=== PATIENT | male | born 1970 | race African-American/Black ===

== ENCOUNTER 2017-03-06 20:15 | Inpatient (IN) ==
[2017-03-06] MEDS ORDERED: AZITHROMYCIN INJ 500 MG in SODIUM CHLORIDE 0.9% 250 ML IV STA (20:41)
[2017-03-06] MEDS ORDERED: ALBUTEROL/IPRATROPIUM 3 ML NEB RESP TX STA (20:41)
[2017-03-06] MEDS ORDERED: methylPREDNISolone SOD SUC 125 MG/2 ML VIAL IV STA (20:41)
[2017-03-06] MEDS ORDERED: KETOROLAC 30 MG/1 ML VIAL IV STA (20:41)
[2017-03-06] MEDS ORDERED: cefTRIAXone 1,000 MG in SODIUM CHLORIDE 0.9% 100 ML IV STA (20:41)
[2017-03-06] MEDS ORDERED: ONDANSETRON 4 MG/2 ML VIAL IV STA (20:41)
--- NOTE | 2017-03-06 20:45 | Emergency Department Note ---
Arrival - Arrival Chief Complaint: Upper Respiratory ED Nursing Triage Note: Pt arrives via ems from home with complaints of productive cough and fever that started yesterday. Pt complains of pain with cough and deep breathing. Denies taking any otc medications or attempting to see family doctor. Mode of Arrival: Stretcher Limitations: No Limitations Source: Patient Time Seen by Provider: 03/06/17 20:41 - History of Present Illness HPI Narrative: This 46-year-old black male presents with 1 month of progressive weight loss, increasing dyspnea on exertion, productive cough of yellow-green sputum, and in the last 2 days severe right-sided pleuritic chest pain. The patient has had low-grade fever but no chills or hemoptysis. Likewise, he reports a 25 pound weight loss over the last month without any attempts at losing weight. Currently he is stable at rest. Onset (ago): month(s) (Patient presents 1 month post onset of symptoms) Allergies/Adverse Reactions: Allergies Allergy/AdvReac Type Severity Reaction Status Date / Time No Known Allergies Allergy Verified 01/21/17 12:04 Home Medications: Home Medications Medication Instructions Recorded Confirmed Type levETIRAcetam TAB [Keppra Tab] 500 mg PO BID #60 tablet 01/21/17 03/06/17 Rx Review of System - Review of System 12 point system: reviewed and no additional remarkable complaints except as stated - Review of System Constitutional: Present: as per HPI Respiratory: Present: as per HPI Medical,Surgical,& Family Hx - Medical History Cardio: History of: Hypertension No history of: Aneurysm, Cardiac Dysrhythmia, Cerebrovascular Disease, Congenital Heart Disease, CHF, CAD, [place], Pacemaker, PVD, Valvular Heart Disease, Cardiovascular Problems Neurology: History of: Seizures No history of: Brain Aneurysm, Cerebral Hemorrhage, Cerebrovascular Accident , Cerebral Palsy, Dementia, Migraine, Multiple Sclerosis, Parkinson's Disease, Peripheral Neuropathy, TIA, Vertigo, Neurologocal Cancer Endocrine: No history of: Dyslipidemia Hematology: No history of: Blood Transfusion Reaction Other: History of: Miscellaneous Medical Problems (Seizures) - Surgical History Cardiac Surgeries: Patient Denies: Femoral-Popliteal Bypass Graft, Cardiac Catheterization, Cardiac Surgery, Carotid Endarterectomy, Internal Defibrillator, Vascular Access Devices Neurologic Surgeries: Patient denies: Brain Aneurysm, Cerebral Hemorrhage, Neurologic Surgery HEENT Surgeries: Patient denies: Carotid Endarterectomy Abdominal Surgeries: Patient denies: Abdominal Surgery, Splenectomy - Family History Family History: Reports;: Family Cancer (father), Family Diabetes (mother), Family Heart Disease (mother), Family Hypertension (mother), Family Stroke ( grandmother) Denies;: Family Anesthesia Reaction, Family Psychiatric Problems - Social History Smoking Status: Smoker, status unknown Frequency of Alcohol Use: Frequently Type of Drug Use: None Exam Physical Examination: GENERAL: Thin frail chronically ill-appearing black male in no acute distress. HEENT: Normocephalic. No trauma. Moist mucous membranes. EOMI. PERRLA. ENT NML NECK: Supple. No adenopathy. CARDIAC: Regular. No murmurs. Heart rate 79 CHEST: Clear to auscultation. No respiratory distress. O2 sat 100% ABDOMEN: Soft. Nontender. Active bowel sounds. EXTREMITIES: No trauma. Normal ROM. No pedal edema. SKIN: No diaphoresis. No rash. NEURO: Alert. Neuro intact no focal deficits. Vital Signs: Vital Signs Temperature 99.9 F H 03/06/17 20:15 Pulse Rate 77 03/06/17 21:01 Respiratory Rate 20 03/06/17 21:01 Blood Pressure 128/100 03/06/17 20:15 O2 Sat by Pulse Oximetry 100 03/06/17 21:01 Course - Reevaluation(s) Reevaluation #1: Patient advised of need of hospitalization with chest tube. - Consultations Consultation #1: Dr. Martins consulted who placed chest tube without difficulty. Results - Labs CBC & BMP: 03/06/17 20:54 03/06/17 20:54 Labs: I have reviewed the laboratory and noted the mild anemia, leukopenia, hypocalcemia - Impressions EKG: Sinus rhythm with normal NJ interval and evidence of right ventricular conduction delay. Nonspecific ST changes. No acute injury pattern noted. - Diagnostic Findings Procedure: Chest x-ray: image reviewed by me, report reviewed by me (Crowding of the right hilum with evidence of a 30% pneumothorax as well as layering of pleural fluid on the right as well) Disposition Clinical Impression: Pneumothorax right lung, Weight loss Case discussed with: patient Disposition: Still a Patient Condition: Guarded Time of Disposition: 22:19
--- NOTE | 2017-03-06 20:58 | EKG Report ---
Stationary ECG Study [facility] ER Test Date: 03/06/2017 8:57:35 PM Pat Name: HELDER CHOWDHURY Department: Room: Gender: M Parts Classifier: : [id number] Requested by: Vishnu Arshad Order Number: [id number] Reading MD: SURENDRA GARZON Intervals [place] Rate: 78 P: 85 IN: 159 QRS: 73 QRSD: 93 T: 83 QT: 393 QTc: 427 Interpretive Statements SINUS RHYTHM EARLY REPOLARIZATION Electronically Signed On 03-06-17 21:49:19 CDT by SURENDRA GARZON [email or web address]
[2017-03-06 21:21] LABS: Basophils % 0.9 % (0.0-0.8); Eosinophils % 0.3 % (0.00-10.9); Hematocrit 36.8 VOL% (42.0-52.0); Hemoglobin 13.6 GM/DL (14.0-18.0); Lymphocytes # 1.7 10*3/uL (1.4-4.0); Lymphocytes % 52.2 % (21.2-54.2); Mean Corpuscular Hemoglobin 37 PG (27-34); Mean Corpuscular Volume 100.3 FL (87-102); Monocytes # 0.3 10*3/uL (0.11-0.8); Monocytes % 9.9 % (1.7-12.7); Neutrophils # 1.2 10*3/uL (1.4-7.4); Neutrophils % 36.7 % (38.7-73.9); Platelet Count 161 T/CUMM (130-400); Red Blood Count 3.67 MC/CUMM (3.8-5.5); Red Cell Distribution Width 12.4 % (9.3-17.3); White Blood Count 3.2 T/CUMM (4-12)
[2017-03-06 21:34] LABS: INR 1.3; PT Patient Result 13.6 SECS; Partial Thromboplastin Time 40.4 SECS (0-40)
[2017-03-06 21:40] LABS: Alanine Aminotransferase 50 U/L (16-61); Albumin 3.1 G/DL (3.4-5.0); Alkaline Phosphatase 92 U/L (45-117); Aspartate Amino Transferase 75 U/L (0-37); Blood Urea Nitrogen 8 MG/DL (7-18); Glucose 87 MG/DL (74-106); Osmolality,Calculated 271.7 MOS/KG (273-304); Sodium 138 MMOL/L (136-145); Total Protein 6.2 G/DL (6.4-8.3); Troponin I Only < 0.015 NG/ML (0.00-0.045)
--- NOTE | 2017-03-06 22:22 | General Surg History&Physical ---
Assessment and Plan (1) Spontaneous pneumothorax Status: Acute Assessment and plan: This patient had a chest tube placed in the ER for spontaneous pneumothorax. He also has a pleural effusion. We will get a CT scan of the chest with IV contrast to further evaluate. He will be admitted to the hospital on IV antibiotics for presumed pneumonia until CT scan is done and serial chest x- rays will be ordered. Current Visit: Yes History of Present Illness Chief complaint: Spontaneous pneumothorax with pleural effusion History of present illness: Mr. Fonseca is a 46 year old male who presented to the ER right chest pain with cough that is productive. He also has unintentional weight loss. He was found to have a spontaneous pneumothorax with pleural effusion on his chest x-ray and a chest tube was placed in the ER. X-ray confirmed adequate placement of 2 with lung reexpansion. There is no significant fluid output from the chest tube placement. CT scan of the chest has been ordered in the ER. Home Medications Medication Instructions Recorded Confirmed Type levETIRAcetam TAB [Keppra Tab] 500 mg PO BID #60 tablet 01/21/17 03/06/17 Rx Allergies Allergy/AdvReac Type Severity Reaction Status Date / Time No Known Allergies Allergy Verified 01/21/17 12:04 Medical,Surgical,& Family Hx - Medical History Cardio: History of: Hypertension No history of: Aneurysm, Cardiac Dysrhythmia, Cerebrovascular Disease, Congenital Heart Disease, CHF, CAD, [place], Pacemaker, PVD, Valvular Heart Disease, Cardiovascular Problems Neurology: History of: Seizures No history of: Brain Aneurysm, Cerebral Hemorrhage, Cerebrovascular Accident , Cerebral Palsy, Dementia, Migraine, Multiple Sclerosis, Parkinson's Disease, Peripheral Neuropathy, TIA, Vertigo, Neurologocal Cancer Endocrine: No history of: Dyslipidemia Hematology: No history of: Blood Transfusion Reaction Other: History of: Miscellaneous Medical Problems (Seizures) - Surgical History Cardiac Surgeries: Patient Denies: Femoral-Popliteal Bypass Graft, Cardiac Catheterization, Cardiac Surgery, Carotid Endarterectomy, Internal Defibrillator, Vascular Access Devices Neurologic Surgeries: Patient denies: Brain Aneurysm, Cerebral Hemorrhage, Neurologic Surgery HEENT Surgeries: Patient denies: Carotid Endarterectomy Abdominal Surgeries: Patient denies: Abdominal Surgery, Splenectomy - Family History Family History: Reports;: Family Cancer (father), Family Diabetes (mother), Family Heart Disease (mother), Family Hypertension (mother), Family Stroke ( grandmother) Denies;: Family Anesthesia Reaction, Family Psychiatric Problems - Social History Smoking Status: Smoker, status unknown Frequency of Alcohol Use: Frequently Type of Drug Use: None Exam - Constitutional Vitals: Period Temp Pulse Resp BP Sys/Thompson Pulse Ox Last 24 Hr 99.9 F-99.9 F 73-79 20-20 128-128/100-100 99-100 General appearance: normal weight, no acute distress - Head Head exam: Present: normal inspection, normocephalic - Eye Eye exam: Present: EOMI Pupils: Present: SARA - ENT Mouth exam: Present: normal external inspection, normal voice - Neck Neck exam: Present: normal inspection, trachea midline - Respiratory Respiratory exam: Present: clear to auscultation bilaterally. Absent: accessory muscle use, chest wall tenderness - Cardiovascular Cardiovascular exam: Present: RRR. Absent: systolic murmur, tachycardia - GI/Abdominal GI/Abdominal exam: Present: normal bowel sounds, soft. Absent: tenderness, rebound - Extremities Exam Extremities exam: Present: normal inspection, normal capillary refill - Back Exam Back exam: Present: normal inspection - Neurological Exam Neurological exam: Present: alert, oriented X3 Speech: Present: normal - Skin Skin exam: Present: normal color, warm - Constitutional Constitutional: Present: as per HPI - EENT Nose, mouth and throat: Present: as per HPI - Cardiovascular Cardiovascular: Present: as per HPI - Respiratory Respiratory: Present: as per HPI - Gastrointestinal Gastrointestinal: Present: as per HPI - Genitourinary Genitourinary: Present: as per HPI - Musculoskeletal Musculoskeletal: Present: as per HPI - Neurological Neurological: Present: as per HPI - Endocrine Endocrine: Present: as per HPI Hematologic/Lymphatic: Present: as per HPI Results - Labs CBC & BMP: 03/06/17 20:54 03/06/17 20:54 - Diagnostic Findings Procedure: X-ray: image reviewed by me (Spontaneous pneumothorax with pleural effusion)
--- NOTE | 2017-03-06 22:24 | Operative Note ---
Date of procedure: 03/06/17 Pre-op diagnosis: Spontaneous pneumothorax right chest Post-op diagnosis: same Procedure: Preoperative diagnosis Right chest spontaneous pneumothorax with pleural effusion Postoperative diagnosis Same Procedures performed Right chest tube placement 24 Maldivian Findings A rodríguez of air was obtained and entry into the chest. No significant fluid output or blood or pus. Complications None apparent Specimen None Anesthesia Local 10 cc of lidocaine Blood loss Minimal Indications Spontaneous right chest pneumothorax with pleural effusion Description of procedure The patient was taken to the ER bay and placed in the supine position. His right arm was placed above his head. The right chest was prepped chlorhexidine and draped sterilely. Informed consent was obtained prior to the procedure. Local anesthetic was administered in the anterior axillary line at the level of the nipple. Incision was made with an 11 blade scalpel and blunt dissection was used to dissected through the fifth intercostal space at the level the nipple to enter into the chest. There is a rodríguez of air present. 24 Maldivian chest tube was placed. There is no fluid output. Patient tolerated procedure well and the chest tube was sewn in with 0 silk sutures. Sterile occlusive dressings were placed. Postoperative chest x-ray was ordered. Postoperative plan Chest CT and admit for observation Implants: 24 sinhala chest tube Anesthesia: local Surgeon / Physician: Bernabe Martins Estimated blood loss: minimal Specimens: none sent Condition: stable Disposition: no change Results - Labs CBC & BMP: 03/06/17 20:54 03/06/17 20:54 Discharge Plan - Discharge Medications No Action levETIRAcetam TAB [Keppra Tab] 500 mg PO BID #60 tablet - Follow Up or Referral - Forms/Instructions
[2017-03-06] MEDS ORDERED: AZITHROMYCIN 500 MG VIAL IV ONE (22:48)
[2017-03-06] MEDS ORDERED: methylPREDNISolone SOD SUC 125 MG/2 ML VIAL ONE (22:49)
[2017-03-06] MEDS ORDERED: KETOROLAC 30 MG/1 ML VIAL ONE (22:49)
[2017-03-06] MEDS ORDERED: ONDANSETRON 4 MG/2 ML VIAL ONE (22:49)
[2017-03-06] MEDS ORDERED: cefTRIAXone 1,000 MG VIAL ONE (22:49)
[2017-03-06 23:01] LABS: Apearance,Urine CLEAR (Clear); Bilirubin,Urine Negative (Negative); Blood, Urine Negative (Negative); Glucose,Urine (UA) Negative (Negative); Ketones,Urine Negative (Negative); Nitrite,Urine Negative (Negative); Protein,Urine Negative; Urine Color Straw (Yellow); Urine Specific Gravity 1.003 (1.001-1.035); Urine Urobilinogen < 2.0 EU/DL (0.2-1.0); WBC,Urine 1 /HPF (0-6)
[2017-03-06 23:10] LABS: Barbiturates Screen,Urine Negative (Negative); Benzodiazepines Screen,Urine Negative (Negative); Cannabinoid Screen,Urine Negative (Negative); Opiate Screen,Urine Negative (Negative); Phencyclidine Screen,Urine Negative (Negative)
[2017-03-06 23:53] LABS: Band Neutrophils 1 % (0-10); Lymphocytes 49 % (20-55); Metamyelocytes 1 %; Segmented Neutrophils 43 % (50-85)
[2017-03-06 23:54] LABS: Platelet Estimate Adequate; Total Cells Counted 100
[2017-03-06] MEDS ORDERED: ONDANSETRON 4 MG/2 ML VIAL IV PRN (23:56)
[2017-03-06] MEDS ORDERED: HYDROmorphone 2 MG/1 ML VIAL IV PRN (23:56)
[2017-03-06] MEDS ORDERED: PROMETHAZINE 25 MG/1 ML VIAL IM PRN (23:56)
[2017-03-06] MEDS ORDERED: ACETAMINOPHEN 325 MG TABLET PO PRN (23:56)
[2017-03-07] MEDS: LACTATED RINGERS 1,000 ML IV SCH ×3 (00:21→19:49)
[2017-03-07] MEDS: KETOROLAC 30 MG/1 ML VIAL IV SCH ×4 (00:24→17:20)
[2017-03-07] MEDS: LEVOFLOXACIN INJ 750 MG in PREMIX 1 EACH IV SCH (02:19)
[2017-03-07 04:19] LABS: Basophils % 0.3 % (0.0-0.8); Hemoglobin 13.6 GM/DL (14.0-18.0); Lymphocytes # 0.9 10*3/uL (1.4-4.0); Lymphocytes % 26.9 % (21.2-54.2); Mean Corpuscular HGB Conc 37.5 GM/DL (32-36); Mean Corpuscular Hemoglobin 38 PG (27-34); Mean Platelet Volume 10.6 FL (9.6-12.0); Monocytes # 0.1 10*3/uL (0.11-0.8); Monocytes % 2.1 % (1.7-12.7); Neutrophils # 2.4 10*3/uL (1.4-7.4); Neutrophils % 70.7 % (38.7-73.9); Platelet Count 158 T/CUMM (130-400); Red Blood Count 3.63 MC/CUMM (3.8-5.5); Red Cell Distribution Width 12.5 % (9.3-17.3); White Blood Count 3.4 T/CUMM (4-12)
[2017-03-07 04:28] LABS: Hematocrit 36.9 VOL% (42.0-52.0)
[2017-03-07 05:31] LABS: Calcium 8.1 MG/DL (8.5-10.1); Osmolality,Calculated 270.1 MOS/KG (273-304); Potassium 4.2 MMOL/L (3.5-5.1)
--- NOTE | 2017-03-07 08:13 | CT Report ---
CT of the chest with intravenous contrast. Indication: Spontaneous pneumothorax. Comparison: May 22, 2008. Axial images were obtained with sagittal and coronal 2-D reconstructions. 100 cc Omni 350. The thyroid gland is normal in size. There is no supraclavicular or axillary lymphadenopathy. The thoracic aorta is of normal caliber. There is no hilar or mediastinal lymphadenopathy. The heart size is normal. There is coronary artery calcification. Lung tay demonstrate paraseptal and centrilobular emphysematous change, with an upper lobe predominance. There is a chest tube in place on the right, with its distal tip at the lung apex. There is a small amount of air tracking along the course of the chest tube, all along the lateral aspect of the pleural space. There is a small amount of pneumothorax anteriorly at the lung bases, and within the major fissure. There is atelectasis of the right lower lobe and a small right pleural effusion. No infiltrates seen on the left. No suspicious mass. Degenerative changes are noted within the spinal column. Impression: Small amount of residual pneumothorax present. Chest tube with its distal tip at the right lung apex. Right basilar atelectasis. Small right pleural effusion. Emphysema. The CT exam was performed using one or more of the following dose reduction techniques: Automated exposure control, adjustment of the mA and/or kV according to patient size, or use of iterative reconstruction technique. PROCEDURE INTERPRETED AT [facility] DEPARTMENT OF RADIOLOGY Final Report Signed by: Dr. Ritu Glover
[2017-03-07] MEDS: levETIRAcetam 500 MG TABLET PO SCH ×2 (08:16→20:14)
[2017-03-07] MEDS: PANTOPRAZOLE 40 MG TABLET PO SCH (08:17)
--- NOTE | 2017-03-07 09:08 | XRay Report ---
Portable chest. Indication: Status post chest tube placement for right-sided pneumothorax. Comparison: March 06, 2017 at 9:19 PM. Since the previous study there has been placement of a right-sided chest tube the distal tip of which is at the right apex. There has been reexpansion of the right lung. Minimal pneumothorax persists at the right costophrenic angle. Right basilar atelectasis is noted. The heart is normal in size. The left lung is clear. The osseous structures are unremarkable. Impression: Satisfactory tube placement, with reexpansion of the right lung. PROCEDURE INTERPRETED AT [facility] DEPARTMENT OF RADIOLOGY Final Report Signed by: Dr. Ritu Glover
--- NOTE | 2017-03-07 09:09 | XRay Report ---
2 view chest. Indication: Shortness of breath. Comparison: December 03, 2016. The heart is normal in size. There is a moderately large right pneumothorax, with a maximum thickness of 42 mm. There is atelectasis in the right lung base. There is an air-fluid level within the pleural space. Vague nodular densities project over the right midlung field. The left lung is clear. There is a slight tension component. Impression: Tension hydropneumothorax. Moderately large. Small nodular densities project over the right midlung field. The patient had a subsequent CT and no correlate was seen. Attention on follow-up chest x-rays is recommended. PROCEDURE INTERPRETED AT [facility] DEPARTMENT OF RADIOLOGY Final Report Signed by: Dr. Ritu Glover
--- NOTE | 2017-03-07 10:08 | XRay Report ---
2 view chest. Indication: Pneumothorax. Comparison: Exam from 10:00 PM last night. The heart is normal in size. The left lung is clear. There is improving aeration of the right lung base. Minimal air persisting in the right pleural space. Chest tube is unchanged in position. Small amount of right pleural effusion. Osseous structures are unremarkable. Impression: Improved aeration at the right base. Minimal air and fluid in the right pleural space. PROCEDURE INTERPRETED AT [facility] DEPARTMENT OF RADIOLOGY Final Report Signed by: Dr. Ritu Glover
--- NOTE | 2017-03-07 10:58 | Event Note ---
General Surgery Progress Note Chief complaint This patient is a 46-year-old man admitted with spontaneous pneumothorax and pleural effusion on the right side treated with chest tube placement and admission on 03/06/2017 Interval history The patient is doing well this morning. His chest pain has resolved but he is having some pain with a chest tube enters into his chest. His CT scan from yesterday shows no underlying pleural-based lesion or explanation for his effusion or pneumothorax. His lung is reexpanded on today's chest x-ray. There was minimal serosanguineous output from the chest tube and there is no airleak today. Physical exam Patient is afebrile with normal vital signs He is tender over his right chest as expected and the chest tube is serosanguineous drainage with no air leak present Labs Reviewed, stable Imaging CT chest and multiple x-rays reviewed, as above Assessment and plan Continue chest tube to suction for another 24 hours Repeat chest x-ray tomorrow smoking cessation
[2017-03-07] MEDS: ENOXAPARIN 40 MG/0.4 ML SYRINGE SUBCUT SCH (17:20)
[2017-03-07] MEDS: MORPHINE 2 MG/1 ML SYRINGE IV PRN (20:14)
[2017-03-08] MEDS: LEVOFLOXACIN INJ 750 MG in PREMIX 1 EACH IV SCH ×2 (00:01→20:08)
[2017-03-08] MEDS: KETOROLAC 30 MG/1 ML VIAL IV SCH ×4 (00:03→20:05)
[2017-03-08] MEDS: LACTATED RINGERS 1,000 ML IV SCH ×3 (05:00→22:00)
--- NOTE | 2017-03-08 07:20 | Event Note ---
General Surgery Progress Note Chief complaint This patient is a 46-year-old man admitted with spontaneous pneumothorax and pleural effusion on the right side treated with chest tube placement and admission on 03/06/2017 Interval history No events overnight. Chest x-ray is not done yet today. Physical exam Patient is afebrile with normal vital signs He is tender over his right chest as expected and the chest tube is serosanguineous drainage with no air leak present Labs None new Imaging Pending Assessment and plan Changed chest tube to waterseal Chest x-ray today Repeat chest x-ray tomorrow and remove chest tube with no air leak or pneumothorax Continue antibiotics for presumed pneumonia and pleural effusion
--- NOTE | 2017-03-08 08:54 | XRay Report ---
Exam: XR chest 2V Date: 03/08/2017 4:00 AM Indication: Right-sided chest tube follow-up Comparison: 03/07/2017 Technical: PA lateral Findings: A right-sided thoracotomy tube is present in the right apex. No obvious pneumothorax clearly demonstrated. Mediastinum is intact the heart is normal in size. The bony structures are unremarkable. Mild hyperinflation Impression: 1. Stable appearance of right apical thoracotomy tube without obvious pneumothorax PROCEDURE INTERPRETED AT [facility] DEPARTMENT OF RADIOLOGY Final Report Signed by: Dr. Tico Watts
[2017-03-08] MEDS: MORPHINE 2 MG/1 ML SYRINGE IV PRN (09:39)
[2017-03-08] MEDS: PANTOPRAZOLE 40 MG TABLET PO SCH (09:57)
[2017-03-08] MEDS: levETIRAcetam 500 MG TABLET PO SCH ×2 (09:58→20:07)
[2017-03-08] MEDS: ENOXAPARIN 40 MG/0.4 ML SYRINGE SUBCUT SCH (20:06)
[2017-03-09] MEDS: KETOROLAC 30 MG/1 ML VIAL IV SCH ×4 (02:57→20:35)
[2017-03-09] MEDS: LACTATED RINGERS 1,000 ML IV SCH ×2 (06:25→17:56)
--- NOTE | 2017-03-09 07:14 | Event Note ---
General Surgery Progress Note Chief complaint This patient is a 46-year-old man admitted with spontaneous pneumothorax and pleural effusion on the right side treated with chest tube placement and admission on 03/06/2017 Interval history No events overnight. Chest x-ray is not done yet today. Chest x-ray yesterday was encouraging with no pneumothorax. Chest tube was changed to waterseal Physical exam Patient is afebrile with normal vital signs He is tender over his right chest as expected and the chest tube is serosanguineous drainage with no air leak present Labs None new Imaging Pending Assessment and plan Chest x-ray this morning Remove chest tube with chest x-ray looks good Follow-up chest x-ray 4 hours after tube removal and discharged home today with follow-up with me in 2 weeks I discussed the patient's knee does not fly or go to altitude or pressurized environments for the next couple weeks.
--- NOTE | 2017-03-09 08:45 | XRay Report ---
History is chest tube management Chest, 2 views Comparison 03/08/2017 The heart is normal in size. Mediastinal and hilar contours are unchanged Right chest tube remains. No pneumothorax seen. Confluent shadows felt to overlie the right mid chest. No consolidation seen. Impression: No pneumothorax seen PROCEDURE INTERPRETED AT [facility] DEPARTMENT OF RADIOLOGY Final Report Signed by: Dr. Monica Glover
[2017-03-09] MEDS: levETIRAcetam 500 MG TABLET PO SCH ×2 (09:42→20:35)
[2017-03-09] MEDS: PANTOPRAZOLE 40 MG TABLET PO SCH (09:42)
--- NOTE | 2017-03-09 15:11 | XRay Report ---
Chest, 2 views History is chest tube removal 03/09/2017 at 3:07 PM The heart is normal in size No acute infiltrates seen Right chest tube has been removed. Markings in the lung apices are fairly symmetric, however there is question of a miniscule pneumothorax in the right lung apex. No consolidation seen Impression: Interval right chest tube removal with very questionable miniscule right apical pneumothorax. Follow-up recommended PROCEDURE INTERPRETED AT [facility] DEPARTMENT OF RADIOLOGY Final Report Signed by: Dr. Monica Glover
[2017-03-09] MEDS: LEVOFLOXACIN INJ 750 MG in PREMIX 1 EACH IV SCH (20:34)
[2017-03-09] MEDS: ENOXAPARIN 40 MG/0.4 ML SYRINGE SUBCUT SCH (20:35)
[2017-03-10] MEDS: KETOROLAC 30 MG/1 ML VIAL IV SCH ×2 (02:40→08:57)
--- NOTE | 2017-03-10 07:56 | Discharge Summary ---
Hospital Course - Hospital Course Hospital Course: This patient was admitted following spontaneous pneumothorax with simple pleural effusion that was treated with chest tube. CT chest showed no underlying lung pathology. The patient did have a productive cough prior to this so he was treated with Levaquin in the hospital and is chest tube was removed after the leak sealed. A repeat chest x-ray was ordered the day of his discharge and was still pending at the time of this dictation but the patient will be discharged home with the x-ray looks stable. I will see him back in clinic in 2 weeks. We discussed avoiding environments with decreased atmospheric pressure. Diagnosis - Discharge Diagnosis (1) Spontaneous pneumothorax Status: Acute Discharge Plan - Discharge Data Disposition: Disch To Home/Self Care Condition at Discharge: Stable Discharge Diet: advance to your usual diet Activity: resume usual activities as tolerated Hygiene: keep area(s) dry, other (Remove the dressing on Wednesday and shower afterwards. Cover the incision with a Band-Aid) Weight Bearing at Discharge: full weight bearing Driving: no restrictions Contact your physician if you experience:: fever over 101, Difficulty voiding, Redness or swelling, Nausea/Vomiting, Shortness of breath, Bleeding, pain uncontrolled by pain medications Wound / Dressing Care Instructions: It is okay to remove your dressing and shower on Wednesday. Cover the wound afterwards with a Band-Aid - Discharge Medications New Levofloxacin Tab [Levaquin Tab] 750 mg PO DAILY #7 tablet Continue levETIRAcetam TAB [Keppra Tab] 500 mg PO BID #60 tablet - Follow Up or Referral Follow Up: Bernabe Martins MD [Physician] - 2 Weeks - Forms/Instructions Exam - Constitutional Vitals: Period Temp Pulse Resp BP Sys/Thompson Pulse Ox Last 24 Hr 96.7 F-98.3 F 64-72 15-20 137-163/78-97 97-100 General appearance: normal weight, no acute distress - Head Head exam: Present: normal inspection, normocephalic - Eye Eye exam: Present: EOMI Pupils: Present: SARA - ENT ENT exam: Present: normal exam - Neck Neck exam: Present: normal inspection - Respiratory Respiratory exam: Present: clear to auscultation bilaterally, chest wall tenderness (The chest is slightly tender over the chest tube site). Absent: accessory muscle use - Cardiovascular Cardiovascular exam: Present: regular rate and rhythm. Absent: systolic murmur , tachycardia Discharge Results Procedures and tests throughout hospitalization: Pending Orders 03/06/17 20:54 Blood Culture Stat 03/10/17 04:00 XR chest 2V IN AM Labs on day of discharge: Preliminary micro results at discharge 03/06/17 20:54 Blood Culture - Preliminary Blood No growth at 3 days 03/06/17 20:54 Blood Culture - Preliminary Blood No growth at 3 days DS: Provider Date of admission: 03/06/17 22:17 Primary care physician: . Osiris PCP Attending physician on admission: Bernabe Martins MD Discharging clinician: Bernabe Martins MD Expected date of discharge: 03/10/17
[2017-03-10 08:10] VITALS: BP 159/95
--- NOTE | 2017-03-10 08:30 | XRay Report ---
XR chest 2V Indication: Chest tube removal Comparison: 09 March 2017 Findings: The heart and mediastinum are normal in size and configuration. No pneumothorax is seen. The pulmonary vascularity is normal in caliber. No lung infiltrates, effusions or other abnormality is demonstrated. Impression: No pneumothorax present or other acute findings. PROCEDURE INTERPRETED AT [facility] DEPARTMENT OF RADIOLOGY Final Report Signed by: Dr. Steve Durand
[2017-03-10] MEDS: PANTOPRAZOLE 40 MG TABLET PO SCH (08:56)
[2017-03-10] MEDS: levETIRAcetam 500 MG TABLET PO SCH (08:57)
== END 2017-03-10 11:15 | disposition home or self-care (01) | DRG 200 ==
LOC: EDBD → EDUNIT# → N.ED 20:15 → N.EDINP 22:17 → N.2E 23:52
PROVIDERS: ADMIT Surgery; ATTEND Surgery

== ENCOUNTER 2017-04-29 07:28 | Inpatient (IN) ==
[2017-04-29 09:19] LABS: Basophils % 0.5 % (0.0-0.8); Eosinophils % 0.2 % (0.00-10.9); Immature Granulocytes % 0.3 %; Immature Granulocytes Absolute 0.02 #; Lymphocytes # 1.4 10*3/uL (1.4-4.0); Lymphocytes % 23.5 % (21.2-54.2); Mean Corpuscular HGB Conc 38.8 GM/DL (32-36); Mean Corpuscular Hemoglobin 38 PG (27-34); Mean Corpuscular Volume 97.9 FL (87-102); Mean Platelet Volume 11.9 FL (9.6-12.0); Monocytes # 0.4 10*3/uL (0.11-0.8); Monocytes % 6.6 % (1.7-12.7); Neutrophils # 4.1 10*3/uL (1.4-7.4); Neutrophils % 68.9 % (38.7-73.9); Platelet Count 124 T/CUMM (130-400); Red Blood Count 4.26 MC/CUMM (3.8-5.5); Red Cell Distribution Width 13.9 % (9.3-17.3); White Blood Count 5.9 T/CUMM (4-12)
[2017-04-29 09:24] LABS: Hematocrit 41.7 VOL% (42.0-52.0); Hemoglobin 16.2 GM/DL (14.0-18.0)
[2017-04-29 10:04] LABS: Alanine Aminotransferase 252 U/L (16-61); Albumin 3.5 G/DL (3.4-5.0); Alkaline Phosphatase 258 U/L (45-117); Aspartate Amino Transferase 611 U/L (0-37); Blood Urea Nitrogen 5 MG/DL (7-18); Calcium 8.2 MG/DL (8.5-10.1); Glucose 145 MG/DL (74-106); Osmolality,Calculated 254.2 MOS/KG (273-304); Potassium 5.1 MMOL/L (3.5-5.1); Sodium 127 MMOL/L (136-145); Total Protein 7.7 G/DL (6.4-8.3)
[2017-04-29 10:45] LABS: Giant Platelets Few; Hypochromasia 1+; Lymphocytes 18 % (20-55); Platelet Estimate Normal; Segmented Neutrophils 77 % (50-85); Total Cells Counted 100
[2017-04-29] MEDS ORDERED: ALBUTEROL/IPRATROPIUM 3 ML NEB RESP TX SCH (11:04)
[2017-04-29] MEDS ORDERED: ONDANSETRON 4 MG/2 ML VIAL IV PRN (11:04)
[2017-04-29] MEDS ORDERED: ACETAMINOPHEN 325 MG TABLET PO PRN (11:04)
[2017-04-29] MEDS: ALBUTEROL/IPRATROPIUM 3 ML NEB RESP TX SCH ×2 (12:24→19:25)
[2017-04-29] MEDS ORDERED: LORazepam 2 MG/1 ML VIAL IV PRN (14:23)
[2017-04-29] MEDS: DEXTROSE 5% NACL 0.9% 1,000 ML IV SCH (16:35)
[2017-04-29] MEDS: THIAMINE 200 MG/2 ML VIAL IV SCH (16:39)
[2017-04-29 17:54] LABS: Barbiturates Screen,Urine Negative (Negative); Benzodiazepines Screen,Urine Negative (Negative); Cannabinoid Screen,Urine Negative (Negative); Opiate Screen,Urine Negative (Negative); Phencyclidine Screen,Urine Negative (Negative)
[2017-04-29] MEDS: levETIRAcetam 500 MG TABLET PO SCH (21:17)
[2017-04-30] MEDS: ALBUTEROL/IPRATROPIUM 3 ML NEB RESP TX SCH ×4 (00:35→19:49)
[2017-04-30] MEDS: DEXTROSE 5% NACL 0.9% 1,000 ML IV SCH ×2 (06:00→20:41)
[2017-04-30 06:16] LABS: Folate 9.3 NG/ML (5.4-24.0)
[2017-04-30 06:23] LABS: Albumin 2.8 G/DL (3.4-5.0); Osmolality,Calculated 265.1 MOS/KG (273-304); Potassium 3.5 MMOL/L (3.5-5.1); Total Protein 5.7 G/DL (6.4-8.3)
[2017-04-30] MEDS: THIAMINE 200 MG/2 ML VIAL IV SCH (08:28)
[2017-04-30] MEDS: levETIRAcetam 500 MG TABLET PO SCH ×2 (08:28→20:05)
[2017-04-30] MEDS: FOLIC ACID 1 MG TABLET PO SCH (08:28)
[2017-04-30] MEDS: PANTOPRAZOLE 40 MG TABLET PO SCH (08:28)
[2017-04-30] MEDS: MULTIVITAMIN (CENTRUM) TABLET PO SCH (08:28)
[2017-05-01] MEDS: ALBUTEROL/IPRATROPIUM 3 ML NEB RESP TX SCH ×2 (01:02→07:41)
[2017-05-01] MEDS: THIAMINE 200 MG/2 ML VIAL IV SCH (08:45)
[2017-05-01] MEDS: FOLIC ACID 1 MG TABLET PO SCH (08:45)
[2017-05-01] MEDS: levETIRAcetam 500 MG TABLET PO SCH (08:45)
[2017-05-01] MEDS: MULTIVITAMIN (CENTRUM) TABLET PO SCH (08:45)
[2017-05-01] MEDS: PANTOPRAZOLE 40 MG TABLET PO SCH (08:45)
[2017-05-01 13:40] VITALS: BP 157/90
[2017-05-01] MEDS: DEXTROSE 5% NACL 0.9% 1,000 ML IV SCH (13:44)
== END 2017-05-01 14:22 | disposition home or self-care (01) | DRG 200 ==
LOC: EDUNIT# → N.EDINP 07:28 → N.ED 07:28 → N.4E 10:46
PROVIDERS: ADMIT Surgery; ATTEND Surgery

== ENCOUNTER 2022-07-16 11:55 | Inpatient (IN) ==
[2022-07-16] MEDS ORDERED: ALBUTEROL NEB SOLN 5 MG/ML 20 ML/BOTTLE CONT NEB STA (12:25)
[2022-07-16] MEDS ORDERED: methylPREDNISolone SOD SUC 125 MG/2 ML VIAL IV STA (12:25)
[2022-07-16] MEDS ORDERED: SODIUM CHLORIDE 0.9% 1,000 ML IV STA (12:25)
[2022-07-16 13:17] LABS: Basophils % 0.6 % (0.0-0.8); Eosinophils % 0.4 % (0.00-10.9); Hematocrit 42.3 VOL% (42.0-52.0); Hemoglobin 14.9 GM/DL (14.0-18.0); Immature Granulocytes % 0.2 %; Immature Granulocytes Absolute 0.01 #; Lymphocytes # 0.5 10*3/uL (1.4-4.0); Lymphocytes % 10.7 % (21.2-54.2); Mean Corpuscular HGB Conc 35.2 GM/DL (32-36); Mean Corpuscular Volume 96.8 FL (87-102); Mean Platelet Volume 8.5 FL (9.6-12.0); Monocytes # 0.6 10*3/uL (0.11-0.8); Monocytes % 11.8 % (1.7-12.7); Neutrophils % 76.3 % (38.7-73.9); Platelet Count 364 T/CUMM (130-400); Red Blood Count 4.37 MC/CUMM (3.8-5.5); Red Cell Distribution Width 11.1 % (9.3-17.3); White Blood Count 4.8 T/CUMM (4-12)
[2022-07-16] MEDS ORDERED: ALBUTEROL 2.5 MG/3 ML NEB RESP TX ONE (13:17)
[2022-07-16 13:29] LABS: PT Patient Result 11.3 SECS (10.1-12.1); Partial Thromboplastin Time 40.9 SECS (23.7-32.9)
[2022-07-16] MEDS ORDERED: LEVOFLOXACIN INJ 500 MG/100 ML PREMIX IV STA (13:36)
[2022-07-16 13:40] LABS: Albumin 2.8 G/DL (3.4-5.0); Bilirubin,Total 0.6 MG/DL (0.20-1.00); Calcium 9.4 MG/DL (8.5-10.1); Osmolality,Calculated 255.9 MOS/KG (273-304); Potassium 3.9 MMOL/L (3.5-5.1); Total Protein 7.4 G/DL (6.4-8.2)
[2022-07-16] MEDS ORDERED: ALBUTEROL 2.5 MG/3 ML NEB RESP TX PRN (14:40)
[2022-07-16] MEDS ORDERED: BISACODYL 5 MG TABLET PO PRN (14:40)
[2022-07-16] MEDS ORDERED: CALCIUM CARBONATE CHEW 500 MG TABLET PO PRN (14:40)
[2022-07-16] MEDS ORDERED: SIMETHICONE CHEW 125 MG TABLET PO PRN (14:40)
[2022-07-16] MEDS ORDERED: ACETAMINOPHEN 325 MG TABLET PO PRN (14:40)
[2022-07-16] MEDS ORDERED: LACTULOSE 20 GM/30 ML UDCUP PO PRN (14:40)
[2022-07-16] MEDS ORDERED: ONDANSETRON 4 MG/2 ML VIAL IV PRN (14:40)
[2022-07-16] MEDS ORDERED: ALUMINUM/MAGNES/SIMETH MAX STR 30 ML UDCUP PO PRN (14:40)
[2022-07-16] MEDS ORDERED: ENOXAPARIN 40 MG/0.4 ML SYRINGE SUBCUT SCH (15:00)
[2022-07-16] MEDS ORDERED: MAGNESIUM SULF RIDER 2 GM/50 ML PREMIX IV ONE (15:50)
[2022-07-16 16:51] LABS: Bilirubin,Urine Negative (Negative); Blood, Urine Trace mg/dL (Negative); Glucose,Urine (UA) Negative (Negative); Ketones,Urine Negative (Negative); Nitrite,Urine Negative (Negative); Protein,Urine Negative (Negative); Urine Appearance Clear (Clear); Urine Color Yellow (Yellow); Urine Specific Gravity 1.025 (1.001-1.035); Urine pH 6.5 (4.5-8.0)
[2022-07-16 16:55] LABS: Mucus,Urine Occasional /LPF (Occasional); RBC,Urine 2 /HPF (0-4); Sperm,Urine Occasional /HPF (Negative)
[2022-07-16 17:26] LABS: Barbiturates Screen,Urine Negative (Negative); Benzodiazepines Screen,Urine Negative (Negative); Cannabinoid Screen,Urine Negative (Negative); Opiate Screen,Urine Positive (Negative); Phencyclidine Screen,Urine Negative (Negative)
[2022-07-16] MEDS: SODIUM CHLORIDE 0.9% 1,000 ML IV SCH (17:36)
[2022-07-16 18:07] LABS: Hematocrit 40.9 VOL% (42.0-52.0); Hemoglobin 14.4 GM/DL (14.0-18.0)
[2022-07-16] MEDS: ALBUTEROL/IPRATROPIUM 3 ML NEB RESP TX SCH (19:00)
[2022-07-16] MEDS: levETIRAcetam 500 MG TABLET PO SCH (21:38)
[2022-07-16] MEDS: methylPREDNISolone SOD SUC 40 MG/1 ML VIAL IV SCH (21:50)
[2022-07-17] MEDS: ALBUTEROL/IPRATROPIUM 3 ML NEB RESP TX SCH ×4 (00:30→19:02)
[2022-07-17 00:58] LABS: Hematocrit 37.3 VOL% (42.0-52.0); Hemoglobin 13.1 GM/DL (14.0-18.0)
[2022-07-17 01:29] LABS: Calcium 9.3 MG/DL (8.5-10.1); Osmolality,Calculated 255.1 MOS/KG (273-304); Potassium 4.2 MMOL/L (3.5-5.1); Thyroid Stimulating Hormone 0.2 uIU/ml (0.358-3.74)
[2022-07-17 01:58] LABS: Hematocrit 38.4 VOL% (42.0-52.0); Hemoglobin 13.6 GM/DL (14.0-18.0); Immature Granulocytes % 0.3 %; Immature Granulocytes Absolute 0.02 #; Lymphocytes # 0.3 10*3/uL (1.4-4.0); Lymphocytes % 4.7 % (21.2-54.2); Mean Corpuscular HGB Conc 35.4 GM/DL (32-36); Mean Corpuscular Volume 96.5 FL (87-102); Mean Platelet Volume 8.5 FL (9.6-12.0); Monocytes # 0.1 10*3/uL (0.11-0.8); Monocytes % 1.4 % (1.7-12.7); Neutrophils % 93.6 % (38.7-73.9); Platelet Count 362 T/CUMM (130-400); Red Blood Count 3.98 MC/CUMM (3.8-5.5); White Blood Count 6.4 T/CUMM (4-12)
[2022-07-17 02:51] LABS: Lymphocytes 8 % (20-55); Platelet Estimate Normal; Total Cells Counted 100
[2022-07-17] MEDS: SODIUM CHLORIDE 0.9% 1,000 ML IV SCH ×2 (04:29→13:27)
[2022-07-17] MEDS: methylPREDNISolone SOD SUC 40 MG/1 ML VIAL IV SCH ×3 (04:29→20:29)
[2022-07-17] MEDS: PANTOPRAZOLE 40 MG TABLET PO SCH (11:29)
[2022-07-17] MEDS: LOSARTAN 25 MG TABLET PO SCH ×2 (11:29→20:29)
[2022-07-17] MEDS: levETIRAcetam 500 MG TABLET PO SCH ×2 (11:29→20:29)
[2022-07-17] MEDS ORDERED: ZINC OXIDE PASTE 113 GM TUBE TOP PRN (12:34)
[2022-07-17] MEDS: SKIN HEALING OINT (AQUAPHOR) 50 GM TUBE TOP SCH (14:29)
[2022-07-17] MEDS: hydrALAZINE 20 MG/1 ML VIAL IV PRN (14:29)
[2022-07-17] MEDS: LEVOFLOXACIN INJ 500 MG/100 ML PREMIX IV SCH (15:50)
[2022-07-17 16:18] LABS: Hematocrit 41.9 VOL% (42.0-52.0); Hemoglobin 14.9 GM/DL (14.0-18.0)
[2022-07-17] MEDS: hydrALAZINE 10 MG TABLET PO SCH ×2 (16:24→20:29)
[2022-07-17 16:39] LABS: Calcium 9.6 MG/DL (8.5-10.1); Osmolality,Calculated 258.8 MOS/KG (273-304); Potassium 4.7 MMOL/L (3.5-5.1)
[2022-07-17] MEDS ORDERED: guaiFENesin 200 MG/10 ML UDCUP PO PRN (20:05)
[2022-07-17] MEDS ORDERED: hydrALAZINE 10 MG TABLET PO SCH (21:00)
[2022-07-18] MEDS: ALBUTEROL/IPRATROPIUM 3 ML NEB RESP TX SCH ×4 (01:00→18:55)
[2022-07-18 05:30] LABS: Basophils % 0.1 % (0.0-0.8); Hematocrit 38.7 VOL% (42.0-52.0); Hemoglobin 13.6 GM/DL (14.0-18.0); Immature Granulocytes % 0.3 %; Immature Granulocytes Absolute 0.03 #; Lymphocytes # 0.4 10*3/uL (1.4-4.0); Lymphocytes % 3.9 % (21.2-54.2); Mean Corpuscular HGB Conc 35.1 GM/DL (32-36); Mean Corpuscular Volume 95.3 FL (87-102); Mean Platelet Volume 8.7 FL (9.6-12.0); Monocytes # 0.6 10*3/uL (0.11-0.8); Neutrophils % 89.7 % (38.7-73.9); Platelet Count 394 T/CUMM (130-400); Red Blood Count 4.06 MC/CUMM (3.8-5.5); White Blood Count 9.2 T/CUMM (4-12)
[2022-07-18 05:54] LABS: Osmolality,Calculated 249.5 MOS/KG (273-304); Potassium 4.3 MMOL/L (3.5-5.1)
[2022-07-18 06:04] LABS: Free T4 (Free Thyroxine) 1.06 NG/DL (0.76-1.46)
[2022-07-18 06:20] LABS: Band Neutrophils 1 % (0-10); Lymphocytes 4 % (20-55); Platelet Estimate Normal; Total Cells Counted 100
[2022-07-18 06:21] LABS: Anisocytosis 1+; Macrocytosis Slight; Spherocytes Few
[2022-07-18] MEDS: hydrALAZINE 10 MG TABLET PO SCH ×3 (08:18→20:01)
[2022-07-18] MEDS: LOSARTAN 25 MG TABLET PO SCH ×2 (08:18→20:01)
[2022-07-18] MEDS: PANTOPRAZOLE 40 MG TABLET PO SCH (08:18)
[2022-07-18] MEDS: methylPREDNISolone SOD SUC 40 MG/1 ML VIAL IV SCH ×2 (08:18→20:55)
[2022-07-18] MEDS: SKIN HEALING OINT (AQUAPHOR) 50 GM TUBE TOP SCH (08:18)
[2022-07-18] MEDS: levETIRAcetam 500 MG TABLET PO SCH ×2 (08:18→20:01)
[2022-07-18] MEDS: SODIUM CHLORIDE 0.9% 1,000 ML IV SCH (12:05)
[2022-07-18] MEDS: LEVOFLOXACIN INJ 500 MG/100 ML PREMIX IV SCH (15:46)
[2022-07-18] MEDS: MORPHINE 2 MG/1 ML SYRINGE IV PRN (20:56)
[2022-07-18] MEDS: hydrALAZINE 20 MG/1 ML VIAL IV PRN (20:56)
[2022-07-19] MEDS: ALBUTEROL/IPRATROPIUM 3 ML NEB RESP TX SCH ×4 (00:11→18:21)
[2022-07-19] MEDS: MORPHINE 2 MG/1 ML SYRINGE IV PRN ×5 (01:44→20:32)
[2022-07-19] MEDS: SODIUM CHLORIDE 0.9% 1,000 ML IV SCH ×3 (04:34→21:59)
[2022-07-19 06:04] LABS: Hemoglobin 14.1 GM/DL (14.0-18.0); Immature Granulocytes % 0.2 %; Immature Granulocytes Absolute 0.01 #; Lymphocytes # 0.4 10*3/uL (1.4-4.0); Lymphocytes % 6.4 % (21.2-54.2); Mean Corpuscular HGB Conc 35.3 GM/DL (32-36); Mean Corpuscular Volume 95.9 FL (87-102); Mean Platelet Volume 8.5 FL (9.6-12.0); Monocytes # 0.5 10*3/uL (0.11-0.8); Monocytes % 9.1 % (1.7-12.7); Neutrophils % 84.3 % (38.7-73.9); Platelet Count 335 T/CUMM (130-400); Red Blood Count 4.17 MC/CUMM (3.8-5.5); Red Cell Distribution Width 11.2 % (9.3-17.3); White Blood Count 5.7 T/CUMM (4-12)
[2022-07-19 06:28] LABS: Calcium 9.3 MG/DL (8.5-10.1); Osmolality,Calculated 252.2 MOS/KG (273-304); Potassium 4.2 MMOL/L (3.5-5.1)
[2022-07-19] MEDS ORDERED: MAGNESIUM SULF RIDER 4 GM/100 ML PREMIX IV ONE (07:29)
[2022-07-19] MEDS: hydrALAZINE 10 MG TABLET PO SCH ×3 (08:13→20:32)
[2022-07-19] MEDS: SKIN HEALING OINT (AQUAPHOR) 50 GM TUBE TOP SCH (08:13)
[2022-07-19] MEDS: PANTOPRAZOLE 40 MG TABLET PO SCH (08:14)
[2022-07-19] MEDS: LOSARTAN 25 MG TABLET PO SCH ×2 (08:14→20:32)
[2022-07-19] MEDS: methylPREDNISolone SOD SUC 40 MG/1 ML VIAL IV SCH ×2 (09:53→20:32)
[2022-07-19] MEDS: LEVOFLOXACIN INJ 500 MG/100 ML PREMIX IV SCH (16:20)
[2022-07-20] MEDS: ALBUTEROL/IPRATROPIUM 3 ML NEB RESP TX SCH ×4 (00:12→19:09)
[2022-07-20] MEDS: SODIUM CHLORIDE 0.9% 1,000 ML IV SCH ×2 (00:31→06:16)
[2022-07-20 05:19] LABS: Hemoglobin 15.5 GM/DL (14.0-18.0); Immature Granulocytes % 0.2 %; Immature Granulocytes Absolute 0.01 #; Lymphocytes # 0.4 10*3/uL (1.4-4.0); Lymphocytes % 6.5 % (21.2-54.2); Mean Corpuscular HGB Conc 33.7 GM/DL (32-36); Mean Corpuscular Volume 101.3 FL (87-102); Mean Platelet Volume 8.8 FL (9.6-12.0); Monocytes # 0.4 10*3/uL (0.11-0.8); Monocytes % 7.8 % (1.7-12.7); Neutrophils % 85.5 % (38.7-73.9); Platelet Count 301 T/CUMM (130-400); Red Blood Count 4.54 MC/CUMM (3.8-5.5); Red Cell Distribution Width 11.3 % (9.3-17.3); White Blood Count 5.4 T/CUMM (4-12)
[2022-07-20 05:36] LABS: Calcium 9.5 MG/DL (8.5-10.1); Osmolality,Calculated 253.2 MOS/KG (273-304); Potassium 4.4 MMOL/L (3.5-5.1)
[2022-07-20] MEDS ORDERED: MEPERIDINE 50 MG/1 ML VIAL IM ONE (07:30)
[2022-07-20] MEDS ORDERED: PROMETHAZINE 25 MG/1 ML VIAL IM ONE (07:30)
[2022-07-20] MEDS ORDERED: LIDOCAINE 2% 20 ML VIAL RESP TX ONE (08:00)
[2022-07-20] MEDS ORDERED: LIDOCAINE 2% VISCOUS 100 ML BOTTLE SWISH/SPIT ONE (08:00)
[2022-07-20] MEDS ORDERED: LIDOCAINE 1% 20 ML VIAL MISC INJ ONE (08:00)
[2022-07-20] MEDS ORDERED: MIDAZOLAM 2 MG/2 ML VIAL IV ONE ×2 (08:00→08:18)
[2022-07-20] MEDS: hydrALAZINE 20 MG/1 ML VIAL IV PRN (08:39)
[2022-07-20] MEDS: methylPREDNISolone SOD SUC 40 MG/1 ML VIAL IV SCH ×2 (09:40→21:24)
[2022-07-20] MEDS ORDERED: TUBERCULIN SKIN TEST 0.1 ML SYRINGE INTRADERM ONE (11:00)
[2022-07-20] MEDS: hydrALAZINE 10 MG TABLET PO SCH ×3 (11:04→21:24)
[2022-07-20] MEDS: LOSARTAN 25 MG TABLET PO SCH ×2 (11:04→21:24)
[2022-07-20] MEDS: PANTOPRAZOLE 40 MG TABLET PO SCH (11:04)
[2022-07-20] MEDS: SKIN HEALING OINT (AQUAPHOR) 50 GM TUBE TOP SCH (11:04)
[2022-07-20] MEDS: LEVOFLOXACIN INJ 750 MG/150 ML PREMIX IV SCH (14:52)
[2022-07-20] MEDS: NICOTINE 14 MG/24 HR PATCH TRANSDERM SCH (14:52)
[2022-07-20] MEDS: MORPHINE 2 MG/1 ML SYRINGE IV PRN ×2 (14:58→21:24)
[2022-07-21] MEDS: ALBUTEROL/IPRATROPIUM 3 ML NEB RESP TX SCH ×4 (00:16→19:05)
[2022-07-21] MEDS: SODIUM CHLORIDE 0.9% 1,000 ML IV SCH ×3 (04:06→19:25)
[2022-07-21] MEDS: hydrALAZINE 20 MG/1 ML VIAL IV PRN (04:06)
[2022-07-21 04:57] LABS: Eosinophils % 0.3 % (0.00-10.9); Hematocrit 40.1 VOL% (42.0-52.0); Hemoglobin 13.8 GM/DL (14.0-18.0); Immature Granulocytes % 0.3 %; Immature Granulocytes Absolute 0.02 #; Lymphocytes # 0.5 10*3/uL (1.4-4.0); Lymphocytes % 7.9 % (21.2-54.2); Mean Corpuscular HGB Conc 34.4 GM/DL (32-36); Mean Corpuscular Volume 96.6 FL (87-102); Mean Platelet Volume 8.9 FL (9.6-12.0); Monocytes # 0.6 10*3/uL (0.11-0.8); Monocytes % 9.6 % (1.7-12.7); Neutrophils % 81.9 % (38.7-73.9); Platelet Count 315 T/CUMM (130-400); Red Blood Count 4.15 MC/CUMM (3.8-5.5); Red Cell Distribution Width 11.3 % (9.3-17.3); White Blood Count 6.7 T/CUMM (4-12)
[2022-07-21 05:30] LABS: Calcium 9.3 MG/DL (8.5-10.1); Osmolality,Calculated 255.9 MOS/KG (273-304); Potassium 3.6 MMOL/L (3.5-5.1)
[2022-07-21] MEDS: NICOTINE 14 MG/24 HR PATCH TRANSDERM SCH (08:08)
[2022-07-21] MEDS: hydrALAZINE 10 MG TABLET PO SCH ×3 (08:09→20:43)
[2022-07-21] MEDS: LOSARTAN 25 MG TABLET PO SCH ×2 (08:09→20:43)
[2022-07-21] MEDS: PANTOPRAZOLE 40 MG TABLET PO SCH (08:09)
[2022-07-21] MEDS: methylPREDNISolone SOD SUC 40 MG/1 ML VIAL IV SCH ×2 (08:09→20:44)
[2022-07-21] MEDS: SKIN HEALING OINT (AQUAPHOR) 50 GM TUBE TOP SCH (08:14)
[2022-07-21] MEDS: MORPHINE 2 MG/1 ML SYRINGE IV PRN ×3 (08:17→20:44)
[2022-07-21] MEDS ORDERED: MAGNESIUM SULF RIDER 2 GM/50 ML PREMIX IV ONE (11:00)
[2022-07-21] MEDS: LEVOFLOXACIN INJ 750 MG/150 ML PREMIX IV SCH (14:09)
[2022-07-21] MEDS: MAGNESIUM OXIDE 400 MG TABLET PO SCH (20:44)
[2022-07-22] MEDS: MORPHINE 2 MG/1 ML SYRINGE IV PRN ×3 (00:31→10:06)
[2022-07-22] MEDS: hydrALAZINE 20 MG/1 ML VIAL IV PRN (00:38)
[2022-07-22] MEDS: ALBUTEROL/IPRATROPIUM 3 ML NEB RESP TX SCH ×3 (00:51→12:45)
[2022-07-22 06:04] LABS: Basophils % 0.2 % (0.0-0.8); Hematocrit 44.9 VOL% (42.0-52.0); Hemoglobin 15.7 GM/DL (14.0-18.0); Immature Granulocytes % 0.8 %; Immature Granulocytes Absolute 0.05 #; Lymphocytes # 0.4 10*3/uL (1.4-4.0); Lymphocytes % 5.6 % (21.2-54.2); Mean Platelet Volume 8.8 FL (9.6-12.0); Monocytes # 0.5 10*3/uL (0.11-0.8); Monocytes % 7.2 % (1.7-12.7); Neutrophils % 86.2 % (38.7-73.9); Platelet Count 264 T/CUMM (130-400); Red Blood Count 4.58 MC/CUMM (3.8-5.5); Red Cell Distribution Width 11.4 % (9.3-17.3); White Blood Count 6.4 T/CUMM (4-12)
[2022-07-22 06:37] LABS: Calcium 8.9 MG/DL (8.5-10.1); Osmolality,Calculated 255.1 MOS/KG (273-304); Potassium 4.1 MMOL/L (3.5-5.1)
[2022-07-22] MEDS: hydrALAZINE 10 MG TABLET PO SCH (08:07)
[2022-07-22] MEDS: NICOTINE 14 MG/24 HR PATCH TRANSDERM SCH (08:07)
[2022-07-22] MEDS: methylPREDNISolone SOD SUC 40 MG/1 ML VIAL IV SCH (08:07)
[2022-07-22] MEDS: SODIUM CHLORIDE 0.9% 1,000 ML IV SCH (08:08)
[2022-07-22] MEDS: LOSARTAN 25 MG TABLET PO SCH (08:08)
[2022-07-22] MEDS: MAGNESIUM OXIDE 400 MG TABLET PO SCH (08:08)
[2022-07-22] MEDS: PANTOPRAZOLE 40 MG TABLET PO SCH (08:08)
[2022-07-22] MEDS: SKIN HEALING OINT (AQUAPHOR) 50 GM TUBE TOP SCH (08:09)
[2022-07-22 12:09] VITALS: BP 170/103
[2022-07-22 17:11] LABS: QuantiFERON-Tb Gold Pl Negative (Negative); TB2 Ag Minus Result -0.01 IU/mL
[2022-07-24 20:36] LABS: M. Tuberculosis PCR Result Negative (Negative)
== END 2022-07-22 14:31 | disposition home health service (06) | DRG 146 ==
LOC: N.ED 11:55 → N.EDINP 11:55 → SUATTDRO 14:40 → N.TELES 16:35 → SUATTDRO 07-17 08:07 → N.ICU 07-17 13:10
PROVIDERS: ADMIT Internal Medicine; ATTEND Internal Medicine

== ENCOUNTER 2022-07-23 03:22 | Observation (INO) ==
[2022-07-23] MEDS ORDERED: methylPREDNISolone SOD SUC 125 MG/2 ML VIAL IV STA (03:35)
[2022-07-23] MEDS ORDERED: NYSTATIN 500,000 UNIT/5 ML UDCUP SWISH/SWAL STA (03:35)
[2022-07-23] MEDS ORDERED: SODIUM CHLORIDE 0.9% 500 ML IV STA (03:35)
[2022-07-23] MEDS ORDERED: MORPHINE 2 MG/1 ML SYRINGE IV STA (03:35)
[2022-07-23] MEDS ORDERED: ONDANSETRON 4 MG/2 ML VIAL IV PRN (04:28)
[2022-07-23] MEDS ORDERED: hydrALAZINE 20 MG/1 ML VIAL IV PRN (04:28)
[2022-07-23 04:37] LABS: Basophils % 0.2 % (0.0-0.8); Eosinophils # 0.1 10*3/uL (0.0-0.87); Eosinophils % 0.9 % (0.00-10.9); Hematocrit 42.2 VOL% (42.0-52.0); Immature Granulocytes % 0.3 %; Immature Granulocytes Absolute 0.02 #; Lymphocytes # 0.5 10*3/uL (1.4-4.0); Mean Corpuscular HGB Conc 35.5 GM/DL (32-36); Mean Corpuscular Volume 96.3 FL (87-102); Mean Platelet Volume 9.1 FL (9.6-12.0); Monocytes # 0.7 10*3/uL (0.11-0.8); Monocytes % 10.1 % (1.7-12.7); Neutrophils % 81.5 % (38.7-73.9); Platelet Count 333 T/CUMM (130-400); Red Blood Count 4.38 MC/CUMM (3.8-5.5); Red Cell Distribution Width 11.3 % (9.3-17.3); White Blood Count 6.5 T/CUMM (4-12)
[2022-07-23 04:56] LABS: Albumin 2.9 G/DL (3.4-5.0); Bilirubin,Total 0.6 MG/DL (0.20-1.00); Osmolality,Calculated 258.7 MOS/KG (273-304); Potassium 3.7 MMOL/L (3.5-5.1); Total Protein 6.4 G/DL (6.4-8.2)
[2022-07-23] MEDS ORDERED: guaiFENesin 200 MG/10 ML UDCUP PO PRN (05:26)
[2022-07-23] MEDS ORDERED: MAGNESIUM SULF RIDER 2 GM/50 ML PREMIX IV ONE (05:30)
[2022-07-23 05:34] LABS: Barbiturates Screen,Urine Negative (Negative); Benzodiazepines Screen,Urine Negative (Negative); Cannabinoid Screen,Urine Negative (Negative); Opiate Screen,Urine Positive (Negative); Phencyclidine Screen,Urine Negative (Negative)
[2022-07-23] MEDS ORDERED: LEVOFLOXACIN 750 MG TABLET PO SCH (08:00)
[2022-07-23] MEDS: NYSTATIN 500,000 UNIT/5 ML UDCUP SWISH/SWAL SCH ×4 (08:49→21:01)
[2022-07-23] MEDS: MAGNESIUM OXIDE 400 MG TABLET PO SCH ×2 (08:50→21:06)
[2022-07-23] MEDS: predniSONE 20 MG TABLET PO SCH (08:50)
[2022-07-23] MEDS: PANTOPRAZOLE 40 MG TABLET PO SCH (08:50)
[2022-07-23] MEDS: levETIRAcetam 500 MG TABLET PO SCH ×2 (08:50→21:01)
[2022-07-23] MEDS: hydrALAZINE 10 MG TABLET PO SCH ×3 (08:50→21:00)
[2022-07-23] MEDS: LOSARTAN 25 MG TABLET PO SCH ×2 (08:50→21:00)
[2022-07-23] MEDS: SKIN HEALING OINT (AQUAPHOR) 50 GM TUBE TOP SCH (08:53)
[2022-07-23] MEDS ORDERED: predniSONE 20 MG TABLET PO SCH (09:00)
[2022-07-23] MEDS ORDERED: IBUPROFEN 600 MG TABLET PO PRN (10:18)
[2022-07-23] MEDS: MYLANTA/LIDO VISC/NYST 180 ML BOTTLE SWISH/SWAL SCH ×4 (11:17→21:07)
[2022-07-23] MEDS: CEFDINIR 300 MG CAPSULE PO SCH ×3 (11:18→21:07)
[2022-07-24 07:22] VITALS: BP 139/95
[2022-07-24] MEDS ORDERED: FLUCONAZOLE 200 MG TABLET PO SCH (09:00)
[2022-07-24] MEDS: hydrALAZINE 10 MG TABLET PO SCH (09:25)
[2022-07-24] MEDS: MAGNESIUM OXIDE 400 MG TABLET PO SCH (09:25)
[2022-07-24] MEDS: CEFDINIR 300 MG CAPSULE PO SCH (09:25)
[2022-07-24] MEDS: NYSTATIN 500,000 UNIT/5 ML UDCUP SWISH/SWAL SCH (09:26)
[2022-07-24] MEDS: predniSONE 20 MG TABLET PO SCH (09:26)
[2022-07-24] MEDS: SKIN HEALING OINT (AQUAPHOR) 50 GM TUBE TOP SCH (09:26)
[2022-07-24] MEDS: MYLANTA/LIDO VISC/NYST 180 ML BOTTLE SWISH/SWAL SCH (09:26)
[2022-07-24] MEDS: levETIRAcetam 500 MG TABLET PO SCH (09:26)
[2022-07-24] MEDS: LOSARTAN 25 MG TABLET PO SCH (09:26)
[2022-07-24] MEDS: PANTOPRAZOLE 40 MG TABLET PO SCH (09:26)
== END 2022-07-24 09:45 | disposition left against medical advice (07) ==
LOC: EDBD → EDUNIT# → N.EDINP 03:22 → N.ED 03:22 → SUATTDRO 04:28 → N.3E 05:13
PROVIDERS: ADMIT Internal Medicine; ATTEND Hospitalist